=== PATIENT | female | born 1955 | race Caucasian/White ===

== ENCOUNTER 2020-06-10 13:49 | Emergency (ER) | payer MEDICAID ==
[~2020-06-10] VITALS: Ht 162.6 cm; Wt 73.0 kg
[2020-06-10 13:53] VITALS: BP 140/78
== END 2020-06-10 15:42 | disposition left against medical advice (07) ==
LOC: EDBD 13:58 → ER 13:58
DX: E11.649 Type 2 diabetes mellitus with hypoglycemia without coma (principal); S41.112A Laceration without foreign body of left upper arm, initial encounter; I10 Essential (primary) hypertension; Z53.29 Procedure and treatment not carried out because of patient's decision for other reasons; X58.XXXA Exposure to other specified factors, initial encounter; Y93.89 Activity, other specified; Y92.017 Garden or yard in single-family (private) house as the place of occurrence of the external cause
CPT/HCPCS: 93005; 99283